=== PATIENT | male | born 1960 | race Two or more races ===

== ENCOUNTER 2020-12-02 13:06 | Inpatient (IN) | payer OTHER ==
[~2020-12-02] VITALS: Ht 162.6 cm; Wt 75.5 kg
[2020-12-02 13:25] LABS: Urine WBC None Seen /hpf (0 - 3)
[2020-12-02 13:45] LABS: Urine Bacteria NONE SEEN /hpf (None Seen); Urine Blood 1+ /uL (Negative); Urine Mucus FEW (None Seen); Urine Specific Gravity 1.033 (1.001-1.035)
[2020-12-02 14:01] LABS: Basophils # (auto) 0 10 ^3/uL (0-0.2); Basophils % (auto) 0.2 % (0.0-2.0); Eosinophils # (auto) 0 10 ^3/uL (0-0.8); Hematocrit 45.3 % (41.0-53.0); Hemoglobin 15.4 g/dL (13.5-17.5); Lymphocytes # (auto) 1.4 10 ^3/uL (0.4-5.4); Lymphocytes % (auto) 10.8 % (10.0-50.0); Mean Corpuscular Hemoglobin 30.3 pg (28.0-32.0); Mean Corpuscular Hgb Conc. 33.9 g/dL (32.0-36.0); Mean Corpuscular Volume 89.2 fL (80.0-100.0); Monocytes # (auto) 1.1 10 ^3/uL (0-1.3); Monocytes % (auto) 8.5 % (0.0-12.0); Neutrophils # (auto) 10.5 10 ^3/uL (1.6-8.6); Neutrophils % (auto) 80.5 % (37.0-80.0); Red Blood Cells 5.07 10^6/uL (4.5-5.90); Red Cell Distribution Width 13.7 % (11.8-14.3); White Blood Cell 13.1 10^3/uL (4.4-10.8)
[2020-12-02 14:15] LABS: Albumin 3.8 g/dL (3.4-5.0); Calcium 9.4 mg/dL (8.5-10.1)
[2020-12-02 14:18] LABS: BUN/Creatinine Ratio 9.6; Bilirubin, Total 0.6 mg/dL (0.2-1.0); Total Protein 8.9 g/dL (6.4-8.2)
[2020-12-02] MEDS ORDERED: KETOROLAC TROMETH 30 MG/ML 1ML VIAL IV ONE (16:30)
[2020-12-02] MEDS ORDERED: SODIUM CHLORIDE 0.9% 2,000 ML IV ONE (16:30)
[2020-12-02] MEDS ORDERED: cefTRIAXone 1GM/50ML D5W 50 ML IV ONE ×2 (16:45→18:30)
[2020-12-02] MEDS ORDERED: FUROSEMIDE 40 MG/4 ML VIAL IV ONE (18:30)
[2020-12-02] MEDS ORDERED: SODIUM CHLORIDE 0.9% 1,000 ML IV ONE (18:30)
[2020-12-02] MEDS ORDERED: MORPHINE SULFATE INJECTION 2 MG/ML SYRG IV PRN (18:30)
[2020-12-02] MEDS ORDERED: DEXTROSE (50%) 50ML SYRG IV PRN (18:30)
[2020-12-02] MEDS ORDERED: ALUM & MAG HYDROX-SIMETH LIQ(MAALOX) 30 ML PO PRN (18:30)
[2020-12-02] MEDS ORDERED: ACETAMINOPHEN 325 MG TAB PO PRN (18:30)
[2020-12-02] MEDS ORDERED: LACTATED RINGER'S 1,000 ML IV ONE (18:30)
[2020-12-02] MEDS ORDERED: LABETALOL HCL 5 MG/ML 4ML SYRINGE IV ONE (18:30)
[2020-12-02] MEDS ORDERED: ONDANSETRON HCL 4 MG/2 ML VIAL IV PRN (18:30)
[2020-12-02] MEDS ORDERED: NITROGLYCERIN 0.4 MG SL TAB SL PRN (18:30)
[2020-12-02] MEDS ORDERED: hydrALAZINE HCL 20 MG/ML VL IV PRN (18:30)
[2020-12-02] MEDS ORDERED: LORazepam 0.5 MG TAB PO PRN (18:30)
[2020-12-02 19:26] LABS: Amphetamine Screen, Urine NEGATIVE (NEGATIVE); Barbiturate Scree,Urine NEGATIVE (NEGATIVE); Benzodiazephine Screen, Urine NEGATIVE (NEGATIVE); Cannabinoid Screen, Urine NEGATIVE (NEGATIVE); Cocaine Screen, Urine NEGATIVE (NEGATIVE); Opiate Scree,Urine NEGATIVE (NEGATIVE); Phencyclidine Screen, Urine NEGATIVE (NEGATIVE)
[2020-12-02 20:21] LABS: Magnesium 2.2 mg/dL (1.6-2.6); Phosphorus 2.8 mg/dL (2.5-4.90)
[2020-12-02 20:22] LABS: Cholesterol 220 mg/dL (< 200); HDL Cholesterol 23 mg/dL (40-59); LDL Cholesterol 159 mg/dL (< 100); Triglycerides 183 mg/dL (< 150)
[2020-12-02] MEDS: SODIUM CHLORIDE 0.9% 1,000 ML IV SCH ×2 (21:45→22:57)
[2020-12-02 22:00] VITALS: BP 155/98
[2020-12-02] MEDS: ATORVASTATIN 20 MG TAB PO SCH (22:06)
[2020-12-02] MEDS: ACCU-CHEK COMFORT CURVE STRIP VI SCH (22:06)
[2020-12-02] MEDS: InsuLIN REG 1unit/0.01ml Soln (100units/ml) SC SCH (22:10)
[2020-12-02] MEDS: MORPHINE SULFATE INJECTION 2 MG/ML SYRG IV PRN (22:15)
[2020-12-03 05:00] VITALS: BP 146/88
[2020-12-03] MEDS: HYDROcodone-ACET 5/325MG TAB PO PRN ×2 (05:42→11:53)
[2020-12-03] MEDS: ACCU-CHEK COMFORT CURVE STRIP VI SCH ×4 (06:40→22:26)
[2020-12-03] MEDS: InsuLIN REG 1unit/0.01ml Soln (100units/ml) SC SCH ×4 (06:41→22:30)
[2020-12-03 09:00] VITALS: BP 113/71
[2020-12-03] MEDS ORDERED: ENOXAPARIN SOD 40 MG/0.4 ML SYRINGE SC SCH (10:00)
[2020-12-03] MEDS ORDERED: CEFTRIAXONE SODIUM 2 GM in D5W 5% 50 ML IV SCH (10:00)
[2020-12-03] MEDS: ASPirin 81 mg TAB PO SCH (10:30)
[2020-12-03] MEDS: BENAZEPRIL HCL 10 MG TAB PO SCH (10:31)
[2020-12-03] MEDS: NIFEdipine ER 30 MG TAB PO SCH (10:31)
[2020-12-03] MEDS: SODIUM CHLORIDE 0.9% 1,000 ML IV SCH ×2 (10:32→18:37)
[2020-12-03] MEDS ORDERED: MANNITOL FTV 25% 12.5 GM/50 ML 50 ML IV ONE (12:15)
[2020-12-03 12:45] LABS: INR 1.11 (0.9-1.15); Partial Thromboplastin Time 26.9 sec (23.6-33.0)
[2020-12-03 13:00] VITALS: BP 115/69
[2020-12-03 17:00] VITALS: BP 91/65
[2020-12-03] MEDS: TAMSULOSIN HYDROCHLORIDE 0.4 MG CAP PO SCH (18:08)
[2020-12-03 20:00] VITALS: BP 115/71
[2020-12-03 22:00] VITALS: BP 115/71
[2020-12-03] MEDS: ATORVASTATIN 20 MG TAB PO SCH (22:25)
[2020-12-03] MEDS: MORPHINE SULFATE INJECTION 2 MG/ML SYRG IV PRN (22:26)
[2020-12-04] MEDS: KETOROLAC TROMETH 30 MG/ML 1ML VIAL IV PRN ×3 (00:37→23:47)
[2020-12-04] MEDS: SODIUM CHLORIDE 0.9% 1,000 ML IV SCH ×3 (03:30→18:41)
[2020-12-04 05:00] VITALS: BP 117/68
[2020-12-04 05:49] LABS: Potassium 3.6 mmol/L (3.5-5.1)
[2020-12-04 05:57] LABS: BUN/Creatinine Ratio 10.6
[2020-12-04] MEDS: ACCU-CHEK COMFORT CURVE STRIP VI SCH ×4 (06:40→22:03)
[2020-12-04] MEDS: InsuLIN REG 1unit/0.01ml Soln (100units/ml) SC SCH ×4 (06:42→22:05)
[2020-12-04 08:00] VITALS: BP 115/71
[2020-12-04] MEDS: ASPirin 81 mg TAB PO SCH (10:07)
[2020-12-04] MEDS: CIPROFLOXACIN HCL 500 MG TAB PO SCH ×2 (10:07→22:02)
[2020-12-04] MEDS: BENAZEPRIL HCL 10 MG TAB PO SCH (10:07)
[2020-12-04] MEDS: NIFEdipine ER 30 MG TAB PO SCH (10:08)
[2020-12-04] MEDS ORDERED: fentaNYL CITRATE 100 MCG/2 ML VL ONE (14:56)
[2020-12-04] MEDS ORDERED: MIDAZOLAM HCL 2MG/2ML 2ml VIAL (1mg/ml) ONE (14:56)
[2020-12-04] MEDS ORDERED: IODIXANOL 320MG/ML 100ML BTL IV ONE (14:57)
[2020-12-04] MEDS ORDERED: LIDOCAINE 2%HCL (LOCAL ANESTH.) INJ 20ML MDV ONE (14:57)
[2020-12-04] MEDS: TAMSULOSIN HYDROCHLORIDE 0.4 MG CAP PO SCH (18:19)
[2020-12-04 20:00] VITALS: BP 141/77
[2020-12-04 21:43] VITALS: BP 141/77
[2020-12-04] MEDS: ATORVASTATIN 20 MG TAB PO SCH (22:02)
[2020-12-05] VITALS (7 sets, daily range): BP systolic 132–147; BP diastolic 76–94
[2020-12-05] MEDS: SODIUM CHLORIDE 0.9% 1,000 ML IV SCH ×3 (02:28→22:10)
[2020-12-05 06:58] LABS: BUN/Creatinine Ratio 13.7; Calcium 8.9 mg/dL (8.5-10.1); Potassium 3.3 mmol/L (3.5-5.1)
[2020-12-05] MEDS: ACCU-CHEK COMFORT CURVE STRIP VI SCH ×4 (06:58→22:01)
[2020-12-05] MEDS: InsuLIN REG 1unit/0.01ml Soln (100units/ml) SC SCH ×4 (06:58→22:02)
[2020-12-05] MEDS: NIFEdipine ER 30 MG TAB PO SCH (10:07)
[2020-12-05] MEDS: BENAZEPRIL HCL 10 MG TAB PO SCH (10:07)
[2020-12-05] MEDS: CIPROFLOXACIN HCL 500 MG TAB PO SCH ×2 (10:07→22:01)
[2020-12-05] MEDS: ASPirin 81 mg TAB PO SCH (10:07)
[2020-12-05] MEDS ORDERED: POTASSIUM EFFERVESENT TAB 25 MEQ GT ONE (12:30)
[2020-12-05] MEDS: TAMSULOSIN HYDROCHLORIDE 0.4 MG CAP PO SCH (17:29)
[2020-12-05] MEDS: ATORVASTATIN 20 MG TAB PO SCH (22:01)
[2020-12-06] MEDS: SODIUM CHLORIDE 0.9% 1,000 ML IV SCH ×4 (02:30→18:01)
[2020-12-06 05:27] VITALS: BP 151/101
[2020-12-06 05:37] LABS: Basophils # (auto) 0 10 ^3/uL (0-0.2); Basophils % (auto) 0.2 % (0.0-2.0); Eosinophils # (auto) 0.2 10 ^3/uL (0-0.8); Eosinophils % (auto) 3.2 % (0.0-7.0); Hematocrit 39.4 % (41.0-53.0); Hemoglobin 13.8 g/dL (13.5-17.5); Lymphocytes # (auto) 1.6 10 ^3/uL (0.4-5.4); Lymphocytes % (auto) 26.6 % (10.0-50.0); Mean Corpuscular Hemoglobin 31.1 pg (28.0-32.0); Mean Corpuscular Volume 88.9 fL (80.0-100.0); Monocytes # (auto) 0.6 10 ^3/uL (0-1.3); Monocytes % (auto) 9.8 % (0.0-12.0); Neutrophils # (auto) 3.7 10 ^3/uL (1.6-8.6); Neutrophils % (auto) 60.2 % (37.0-80.0); Red Blood Cells 4.44 10^6/uL (4.5-5.90); Red Cell Distribution Width 13.2 % (11.8-14.3); White Blood Cell 6.1 10^3/uL (4.4-10.8)
[2020-12-06 06:00] LABS: BUN/Creatinine Ratio 14.5; Calcium 9.2 mg/dL (8.5-10.1)
[2020-12-06] MEDS: ACCU-CHEK COMFORT CURVE STRIP VI SCH ×4 (06:31→22:19)
[2020-12-06] MEDS: InsuLIN REG 1unit/0.01ml Soln (100units/ml) SC SCH ×4 (06:32→22:20)
[2020-12-06 09:00] VITALS: BP 142/95
[2020-12-06] MEDS: CIPROFLOXACIN HCL 500 MG TAB PO SCH ×2 (09:28→22:19)
[2020-12-06] MEDS: ASPirin 81 mg TAB PO SCH (09:28)
[2020-12-06] MEDS: BENAZEPRIL HCL 10 MG TAB PO SCH (09:29)
[2020-12-06] MEDS: NIFEdipine ER 30 MG TAB PO SCH (09:29)
[2020-12-06 09:34] LABS: Potassium 4.2 mmol/L (3.5-5.1)
[2020-12-06 13:00] VITALS: BP 142/91
[2020-12-06 17:07] VITALS: BP 132/76
[2020-12-06] MEDS: TAMSULOSIN HYDROCHLORIDE 0.4 MG CAP PO SCH (17:23)
[2020-12-06 22:17] VITALS: BP 108/71
[2020-12-06] MEDS: ATORVASTATIN 20 MG TAB PO SCH (22:19)
[2020-12-07 05:09] VITALS: BP 152/111
[2020-12-07] MEDS: ACCU-CHEK COMFORT CURVE STRIP VI SCH ×3 (06:25→17:00)
[2020-12-07] MEDS: InsuLIN REG 1unit/0.01ml Soln (100units/ml) SC SCH ×3 (06:25→17:00)
[2020-12-07] MEDS: SODIUM CHLORIDE 0.9% 1,000 ML IV SCH (06:25)
[2020-12-07 06:54] LABS: Basophils # (auto) 0 10 ^3/uL (0-0.2); Basophils % (auto) 0.6 % (0.0-2.0); Eosinophils # (auto) 0.2 10 ^3/uL (0-0.8); Eosinophils % (auto) 3.7 % (0.0-7.0); Hematocrit 38.5 % (41.0-53.0); Hemoglobin 13.7 g/dL (13.5-17.5); Lymphocytes # (auto) 1.7 10 ^3/uL (0.4-5.4); Lymphocytes % (auto) 27.5 % (10.0-50.0); Mean Corpuscular Hemoglobin 31.2 pg (28.0-32.0); Mean Corpuscular Hgb Conc. 35.5 g/dL (32.0-36.0); Mean Corpuscular Volume 87.9 fL (80.0-100.0); Monocytes # (auto) 0.5 10 ^3/uL (0-1.3); Monocytes % (auto) 8.4 % (0.0-12.0); Neutrophils # (auto) 3.7 10 ^3/uL (1.6-8.6); Neutrophils % (auto) 59.8 % (37.0-80.0); Nucleated Red Blood Cells % 0.1 %; Red Blood Cells 4.38 10^6/uL (4.5-5.90); Red Cell Distribution Width 12.9 % (11.8-14.3); White Blood Cell 6.2 10^3/uL (4.4-10.8)
[2020-12-07 07:05] LABS: BUN/Creatinine Ratio 16.7; Calcium 8.7 mg/dL (8.5-10.1); Potassium 3.6 mmol/L (3.5-5.1)
[2020-12-07 09:00] VITALS: BP 143/81
[2020-12-07] MEDS ORDERED: ATOR20TA50 PO (10:21)
[2020-12-07] MEDS ORDERED: METF-370 PO (10:21)
[2020-12-07] MEDS ORDERED: BENA10TA9 PO (10:21)
[2020-12-07] MEDS: ASPirin 81 mg TAB PO SCH (10:37)
[2020-12-07] MEDS: BENAZEPRIL HCL 10 MG TAB PO SCH (10:37)
[2020-12-07 12:25] VITALS: BP 121/75
[2020-12-07 13:00] VITALS: BP 149/89
[2020-12-07 17:00] VITALS: BP 124/69
== END 2020-12-07 18:30 | disposition home or self-care (01) | DRG 690 ==
LOC: ER 13:06 → OVERFLOW 18:24 → UNDOADMIN 19:03 → WEST WING 22:02
PROVIDERS: ADMIT Hospitalist; ATTEND Internal Medicine
PROC: 0T9130Z Drainage of Left Kidney with Drainage Device, Percutaneous Approach (ICD-10-PCS; principal; 2020-12-04)
PROC: BT1F1ZZ Fluoroscopy of Left Kidney, Ureter and Bladder using Low Osmolar Contrast (ICD-10-PCS; 2020-12-04)
PROC: BT42ZZZ Ultrasonography of Left Kidney (ICD-10-PCS; 2020-12-04)
DX: N13.6 Pyonephrosis (principal); E11.22 Type 2 diabetes mellitus with diabetic chronic kidney disease; E66.9 Obesity, unspecified; E78.5 Hyperlipidemia, unspecified; I12.9 Hypertensive chronic kidney disease with stage 1 through stage 4 chronic kidney disease, or unspecified chronic kidney disease; I16.0 Hypertensive urgency; N18.31 Chronic kidney disease, stage 3a; N17.9 Acute kidney failure, unspecified; Z20.822 Contact with and (suspected) exposure to COVID-19; Z68.28 Body mass index [BMI] 28.0-28.9, adult
CPT/HCPCS: 36415; 50432; 74176; 74425; 76942; 80048; 80053; 80061; 80307; 81001; 82962; 83036; 83735; 84100; 84443; 84484; 85025; 85610; 85730; 87040; 87086; 87426; 93005; 96361; 96365; 96375; 99152; C1729; G0378; J0696; J1815; J1885; J2250; J3490; J7060; Q9967